=== PATIENT | female | born 2000 ===

== ENCOUNTER 2024-02-14 12:42 | Emergency (ER) | payer OTHER, SELFPAY ==
--- NOTE | ~2024-02-14 | XR_ITS ---
EXAMINATION: XR CHEST CLINICAL INFORMATION: Cough, asthma. COMPARISON: Chest radiograph 11/14/2023. TECHNIQUE: Frontal view of the chest was obtained. FINDINGS: Normal appearance of the cardiomediastinal silhouette. No focal airspace opacities, pleural effusion or pneumothorax. No acute osseous findings. XR/XR chest 1V IMPRESSION: No acute cardiopulmonary findings.
[2024-02-14 13:02] VITALS: BP 120/64; PULSE 70; RESP 18; TEMP 36.1; O2SAT 98; BMI 28.5
--- NOTE | 2024-02-14 13:13 | ED_ITS ---
HPI - General Adult General Chief complaint: Dyspnea Stated complaint: Diff breathing Time Seen by Provider: 02/14/24 15:38 Source: patient Mode of arrival: ambulatory Limitations: no limitations History of Present Illness HPI narrative: 23 yold female with pmh of asthma and covid presents to the ED for coughing, wheezing, and SOB. patient states using her pump multiple times a day. patient states coughing at night and wheezing. patient states no leg swelling, pitting edema, calf pain, pleurisy, recent travel, recent surgery, control or history of PE/DVT. Related Data Previous Rx's ?Medication ?Instructions ?Recorded albuterol sulfate 90 mcg/actuation 2 puff inhalation Q4-6H PRN 02/14/24 aerosol inhaler shortness of breath or wheezing #8.5 grams benzonatate 200 mg capsule 200 mg PO TID PRN cough 5 days #15 02/14/24 caps prednisone 20 mg tablet 40 mg (2 x 20 mg) PO DAILY 5 days 02/14/24 #10 tabs Allergies Allergy/AdvReac Type Severity Reaction Status Date / Time No Known Allergies Allergy Verified 02/14/24 13:11 Review of Systems Review of Systems: coughing and wheezing. Yes all other systems are reviewed and are negative PMFSH Social History Social History Advance Directives: No Advance Directives Information Provided: No Physical Exam ED Vital Signs: Vital Signs - 24 hr 02/14/24 13:02 02/14/24 13:29 02/14/24 16:05 Temperature 97 F 98 F Pulse Rate 70 78 95 Respiratory Rate 18 18 18 Blood Pressure 120/64 135/65 Pulse Oximetry 98 98 Oxygen Delivery Method Room Air Room Air BMI result Body Mass Index 28.5 Const General: cooperative, healthy appearing, comfortable, no acute distress, well developed, alert and awake Orientation/consciousness: oriented to person, oriented to place, oriented to time and patient oriented x3 HENMT Head: Yes normal to inspection, Yes No palpable skull fracture present, Yes normocephalic, Yes atraumatic and No abrasion Eyes General: appearance normal, both eyes and all related structures Neck Neck: Yes normal visual inspection, Yes full ROM, Yes no lymphadenopathy, Yes no meningeal signs, Yes trachea midline, Yes supple, No anterior neck swelling and No tender Chest Chest palpation & inspection: normal inspection of the chest and normal palpation of entire chest wall Resp Effort & Inspection: normal respiratory effort and able to speak in complete sentences Auscultation: wheezes expiratory wheezes and throughout Cardio Jugular venous distension: no JVD Heart sounds: S1 normal heart sound present and S2 normal heart sound present GI Inspection: Yes normal to inspection Palpation (GI): Soft to palpation, not firm, nontender, no guarding and not rigid General: Yes no CVA tenderness Back/Spine/Pelvis Back: no CVA tenderness and No back tenderness Skin General skin exam: no rashes or lesions noted, elasticity normal and turgor normal Neuro General: oriented to person, oriented to place, oriented to time, patient oriented x3, gait normal, tone normal, moves all extremities, Normal light touch and pain sensation, no meningeal signs and no focal motor deficits Extrem Other: BIlateral lower extremity negative for swelling, pitting edema, or calf tendernss. General: Yes normal to inspection, Yes full ROM and Yes capillary refill normal Psych Appearance: grossly normal, well kempt and not disheveled Course Course Course Narrative: RME: 23 yold FEMALE PRESENTS TO THE ED for asthma exacerbation. patient states waking up with wheezing and SOB. past 3 days used up her albueterol pump. negative for leg swelling, calf pain, recent long travel, control use, or surgery. ED bronchodilator, xray, prednisone, and SARS ordered. Lung exam positive for wheezing. Medications Administered Discontinued Medications Generic Name Dose Route Start Last Admin Trade Name Freq PRN Reason Stop Dose Admin Albuterol Sulfate 4 puff 02/14/24 13:16 02/14/24 13:28 Albuterol Sulfate 90 Mcg 8 Gm Inhaler INHALE 02/14/24 13:17 4 puff ONCE ONE Administration Prednisone 60 mg 02/14/24 13:12 02/14/24 15:44 Prednisone 20 Mg Tablet PO 02/14/24 13:13 60 mg ONCE ONE Administration Medical Decision Making Medical Decision Making MDM Narrative: 23-year-old female patient's ED for asthma exacerbation. Wheezing on lung exam. Patient states feeling better. no longer wheezing after treatment albuterol pump from Respiratory. Patient does not want any other further evaluation. Patient would like to be discharged. Patient informed that need to be evaluated by ED provider for decision if any other further workup, but patient states feels fine and wants to be discharged from triage/waiting room. Patient explained worrisome signs including signs of pulmonary embolus, MT, CHF, pneu monia and informed to return to the ED immediately. Differential Diagnosis Differential Diagnoses: The differential diagnosis associated with the presentation includes (asthma, pneumonia, covid, rsv) Admission/Observation Consideration of admission/observation: Escalation of care including admission/observation considered Lab Data MDM Lab Attestation statement: I reviewed the patient's lab results. Labs: Lab Results 02/14/24 Range/Units 13:50 Influenza Type A (PCR) NEGATIVE (Negative) Influenza Type B (PCR) NEGATIVE (Negative) RSV RNA Qual (PCR) NEGATIVE (Negative) SARS-CoV-2 RNA (RT-PCR) NEGATIVE (Negative) Independent Interpretation I performed an independent interpretation of an: Plain X-Ray Radiology Impression Discussion of test interpretation with radiology: I have reviewed the radiologist's reading. Independent Historian Clinical information obtained from an independent historian. History obtained from or confirmed by: Other (patient) External Record Review External record reviewed: Other (prior visits) Prescription Management I considered prescription management with: Other (steroid) Discharge Plan Discharge Clinical Impression: Asthma with exacerbation Patient Disposition: Home, Self-Care Instructions: Asthma (ED) Additional Instructions: Return to the ED immediately for any chest pain, shortness of breath, coughing up blood, leg swelling, calf pain, intractable fever, chills, chest pain inspiration, or any other concerning symptoms. Recommend follow-up with PCP Prescriptions: New prednisone 20 mg tablet 40 mg PO DAILY 5 Days Qty: 10 0RF albuterol sulfate 90 mcg/actuation HFA aerosol inhaler 2 puff inhalation Q4-6H PRN (Reason: shortness of breath or wheezing) Qty: 8 .5 0RF benzonatate 200 mg capsule 200 mg PO TID PRN (Reason: cough) 5 Days Qty: 15 0RF Stand Alone Forms: Work/School Release Interventions: ED Discharge Assessment Last Done: 02/14/24 16:05 Discharge Date/Time: 02/14/24 16:06 Print Language: Bengali
[2024-02-14] MEDS: Albuterol Sulfate 90 MCG 8 GM INHALER 4 PUFF INHALE (13:28)
[2024-02-14 13:29] VITALS: PULSE 78; RESP 18; O2SAT 97
[2024-02-14 14:48] LABS: Influenza A PCR NEGATIVE (Negative); Influenza B PCR NEGATIVE (Negative); Resp Syncy Virus RNA Qual PCR NEGATIVE (Negative); SARS COV2 PCR INHOUSE NEGATIVE (Negative)
[2024-02-14] MEDS: predniSONE 20 MG TABLET 60 MG PO (15:44)
[2024-02-14 16:05] VITALS: BP 135/65; PULSE 95; RESP 18; TEMP 36.6; O2SAT 98
== END 2024-02-14 16:06 | disposition home or self-care (01) ==
PROVIDERS: Physician Assistant; Emergency Provider Student in an Organized Health Care Education/Training Program
DX: J45.901 Unspecified asthma with (acute) exacerbation (principal); R06.02 Shortness of breath; R05.9 Cough, unspecified; Z11.52 Encounter for screening for COVID-19; Z20.822 Contact with and (suspected) exposure to COVID-19
CPT/HCPCS: 0241U; 71045; 94640; 99283; 99284

== ENCOUNTER 2024-03-04 08:34 | Emergency (ER) | payer OTHER, SELFPAY ==
[2024-03-04 08:43] VITALS: BP 107/67; PULSE 70; RESP 16; TEMP 36.6; O2SAT 96; BMI 35.5
--- NOTE | 2024-03-04 10:01 | ED.GENADULT ---
HPI - General Adult General Chief complaint: Dyspnea Stated complaint: asthma attack 4am Time Seen by Provider: 03/04/24 09:24 Source: patient Mode of arrival: ambulatory Limitations: no limitations History of Present Illness HPI narrative: 23 yold female with pmh of asthma presents For coughing, wheezing, and wake up in the middle of the night gasping for air with coughing and wheezing. Patient was seen here on the for same complaint and was prescribed prednisone albuterol inhaler and coughing medication. Patient states she completed those meds and felt better and no longer had coughing and wheezing until last night. Patient will be prescribed those meds again. Patient denies any chest pain, leg swelling, calf pain, coughing up blood, fever, chills, recent long travel, recent surgery, or history of blood clots. Patient not taking any estrogen oral control pills. Patient denies any drug use. Patient denies any recent trauma. Related Data Previous Rx's ?Medication ?Instructions ?Recorded albuterol sulfate 90 mcg/actuation 2 puff inhalation Q4-6H PRN 02/14/24 aerosol inhaler shortness of breath or wheezing #8.5 grams benzonatate 200 mg capsule 200 mg PO TID PRN cough 5 days #15 02/14/24 caps prednisone 20 mg tablet 40 mg (2 x 20 mg) PO DAILY 5 days 02/14/24 #10 tabs albuterol sulfate 90 mcg/actuation 2 puff inhalation Q4-6H PRN 03/04/24 aerosol inhaler shortness of breath or wheezing #8.5 grams benzonatate 200 mg capsule 200 mg PO TID PRN cough 5 days #15 03/04/24 caps prednisone 20 mg tablet 40 mg (2 x 20 mg) PO DAILY 5 days 03/04/24 #10 tabs Allergies Allergy/AdvReac Type Severity Reaction Status Date / Time No Known Allergies Allergy Verified 03/04/24 08:47 Review of Systems Review of Systems: coughing, wheezing, Yes all other systems are reviewed and are negative PMFSH Social History Social History Advance Directives: No Advance Directives Information Provided: No Patient : No Physical Exam ED Vital Signs: Vital Signs - 24 hr 03/04/24 08:43 Temperature 97.9 F Pulse Rate 70 Respiratory Rate 16 Blood Pressure 107/67 Pulse Oximetry 96 Oxygen Delivery Method Room Air BMI result Body Mass Index 35.5 Const General: cooperative, healthy appearing, comfortable, no acute distress, well developed, alert and awake Orientation/consciousness: oriented to person, oriented to place, oriented to time and patient oriented x3 HENMT Head: Yes normal to inspection, Yes No palpable skull fracture present, Yes normocephalic, Yes atraumatic and No abrasion Eyes General: appearance normal, both eyes and all related structures Neck Neck: Yes normal visual inspection, Yes full ROM, Yes no lymphadenopathy, Yes no meningeal signs, Yes trachea midline, Yes supple, No anterior neck swelling and No tender Chest Chest palpation & inspection: normal inspection of the chest and normal palpation of entire chest wall Resp Effort & Inspection: normal respiratory effort and able to speak in complete sentences Auscultation: wheezes expiratory wheezes Cardio Jugular venous distension: no JVD Heart sounds: S1 normal heart sound present and S2 normal heart sound present GI Inspection: Yes normal to inspection Palpation (GI): Soft to palpation, not firm, nontender, no guarding and not rigid General: Yes no CVA tenderness Back/Spine/Pelvis Back: no CVA tenderness and No back tenderness Skin General skin exam: no rashes or lesions noted, elasticity normal and turgor normal Neuro General: oriented to person, oriented to place, oriented to time, patient oriented x3, gait normal, tone normal, moves all extremities, Normal light touch and pain sensation, no meningeal signs, no focal motor deficits, CN's II-XI intact bilaterally and normal sensation to monofilament Extrem Other: bilateral lower extremities negative for swelling, pitting edema, or calf tendrenss. General: Yes normal to inspection and Yes full ROM Psych Appearance: grossly normal, well kempt and not disheveled Medications Administered Discontinued Medications Generic Name Dose Route Start Last Admin Trade Name Freq PRN Reason Stop Dose Admin Albuterol Sulfate 4 puff 03/04/24 10:32 03/04/24 10:38 Albuterol Sulfate 90 Mcg 8 Gm Inhaler INHALE 03/04/24 10:33 4 puff ONCE ONE Administration Medical Decision Making Medical Decision Making [facility] Narrative: 23 yold female presents to the ED ASTHMA excaberation. patient has appointment with pulmonogist. patient requesting same meds that helped her symptoms resolved when she came to the ED. presently no need for any EKG blood work or chest x-ray. Vital signs are stable. Patient denies any chest pain or shortness of breath. Not suspecting PE, myocardial infarction, pneumonia, pneumothorax, hemothorax, pericarditis, myocarditis, or CHF. Lungs positive for wheezing indicating asthma. Patient not in any distress. Patient is not retracting chest or abdomen. Patient is speaking in full sentences. Perc score is 0. Not suspecting CHF. Patient explained worrisome signs and informed to return to the ED if she has them. Differential Diagnosis Differential Diagnoses: The differential diagnosis associated with the presentation includes ( Asthma, ) Admission/Observation Consideration of admission/observation: Escalation of care including admission/observation considered Independent Historian Clinical information obtained from an independent historian. History obtained from or confirmed by: Other ( patient) Prescription Management I considered prescription management with: Other ( steroids, cough medication) Discharge Plan Discharge Clinical Impression: Asthma with exacerbation Patient Disposition: Home, Self-Care Instructions: Asthma (ED) Additional Instructions: return to the ED immediately for any chest pain, shortness of breath coughing up blood, calf pain, weakness, dizziness, chest pain on inspiration, chest pain/shortness of breath on exertion, fever, chills, back pain, rib pain, or any other concerning symptoms. Recommend follow up with PCP and pulmonogist. Prescriptions: New albuterol sulfate 90 mcg/actuation HFA aerosol inhaler 2 puff inhalation Q4-6H PRN (Reason: shortness of breath or wheezing) Qty: 8.5 0RF prednisone 20 mg tablet 40 mg PO DAILY 5 Days Qty: 10 0RF benzonatate 200 mg capsule 200 mg PO TID PRN (Reason: cough) 5 Days Qty: 15 0RF No Action prednisone 20 mg tablet 40 mg PO DAILY 5 Days Qty: 10 0RF albuterol sulfate 90 mcg/actuation HFA aerosol inhaler 2 puff inhalation Q4-6H PRN (Reason: shortness of breath or wheezing) Qty: 8.5 0RF benzonatate 200 mg capsule 200 mg PO TID PRN (Reason: cough) 5 Days Qty: 15 0RF Stand Alone Forms: Work/School Release Interventions: ED Discharge Assessment Last Done: 03/04/24 10:40 Discharge Date/Time: 03/04/24 10:41 Print Language: Mauritanian
[2024-03-04 10:37] VITALS: BP 110/52; PULSE 65; RESP 18; O2SAT 95
[2024-03-04] MEDS: Albuterol Sulfate 90 MCG 8 GM INHALER 4 PUFF INHALE (10:38)
[2024-03-04 10:40] VITALS: BP 110/52; PULSE 65; RESP 18; TEMP 36.6; O2SAT 95
== END 2024-03-04 10:41 | disposition home or self-care (01) ==
PROVIDERS: Emergency Provider Student in an Organized Health Care Education/Training Program
DX: J45.901 Unspecified asthma with (acute) exacerbation (principal); Z79.899 Other long term (current) drug therapy
CPT/HCPCS: 99284

== ENCOUNTER 2024-03-24 09:59 | Emergency (ER) | payer OTHER, SELFPAY ==
[2024-03-24 10:42] VITALS: BP 103/55; PULSE 74; RESP 16; O2SAT 98; BMI 34.9
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
== END 2024-03-24 11:22 | disposition home or self-care (01) ==
PROVIDERS: Emergency Provider Emergency Medicine
DX: S13.4XXA Sprain of ligaments of cervical spine, initial encounter (principal); V89.0XXA Person injured in unspecified motor-vehicle accident, nontraffic, initial encounter; Y93.9 Activity, unspecified; Y92.488 Other paved roadways as the place of occurrence of the external cause; Y99.9 Unspecified external cause status
CPT/HCPCS: 99281; 99282

== ENCOUNTER 2024-12-17 06:21 | Emergency (ER) | payer SELFPAY ==
--- NOTE | ~2024-12-17 | XR_ITS ---
CLINICAL HISTORY: SOB 2 view chest x-ray Comparison: CR/AK/SR - XR CHEST 1V - 02/14/24 13:51 EDT Findings: No consolidation or effusion. Heart size is normal. No acute fracture. IMPRESSION: 1. No acute cardiopulmonary abnormality. This document has been electronically signed by: Cesar Myers on 12/17/2024 07:28:26
[2024-12-17 06:33] VITALS: BP 134/59; PULSE 125; RESP 22; TEMP 37.2; O2SAT 96; BMI 31.2
[2024-12-17 06:43] LABS: MANUAL DIFF FLAG NO
[2024-12-17] MEDS: Albuterol/Iprat 2.5/0.5MG 3 ML AMPUL.NEB INHALE (06:43)
[2024-12-17 06:44] VITALS: PULSE 113; RESP 21; O2SAT 95
[2024-12-17 06:44] LABS: Basophils Percent Auto 0.2 % (0-2); Eosinophils Percent Auto 0.4 % (0-4); Hematocrit 38.4 % (37.0-47.0); Imm Gran Abs Auto 0.01 X10*3/uL (0.00-0.03); Imm Gran Pct Auto 0.2 % (0.0-0.4); Lymphocytes Absolute Auto 0.3 X10*3/uL (1.2-4.9); Lymphocytes Percent Auto 5.8 % (20-40); Mean Corpuscular HGB Conc 36.5 g/dl (31.0-35.0); Mean Corpuscular Hemoglobin 31.1 pg (27.0-33.0); Mean Corpuscular Volume 85.3 fL (80.0-98.0); Mean Platelet Volume 9.8 fL (9.4-12.3); Monocytes Absolute Auto 0.4 X10*3/uL (0.1-1.2); Monocytes Percent Auto 6.2 % (2-11); Neutrophils Percent Auto 87.2 % (45-73); Platelet Count 188 X10*3/uL (160-400); Red Cell Distribution Width 12.6 % (11.0-16.0); White Blood Count 5.7 X10*3/uL (4.8-10.8)
--- NOTE | 2024-12-17 06:46 | ED_ITS ---
HPI - Asthma General Chief Complaint: Asthma Stated Complaint: asthma attack Time Seen by Provider: 12/17/24 06:46 Source: patient Mode of arrival: ambulatory Limitations: no limitations History of Present Illness ED Provider: TOBY Tristan HPI Narrative: This is a 24-year-old female who presents to the emergency department with feeling unwell overall reporting cough, shortness of breath, fatigue, malaise, myalgias all this came on suddenly yesterday. She thinks this maybe asthma. She reports she has been using her inhaler more than she is supposed to because of wheezing. She states it has not been helping much. Denies sick contacts. She denies chest pain, nausea, vomiting, abdominal pain, headache, vision changes, dizziness, weakness. Related Data Previous Rx's ?Medication ?Instructions ?Recorded albuterol sulfate 90 mcg/actuation 2 puff inhalation Q4-6H PRN 02/14/24 aerosol inhaler shortness of breath or wheezing #8.5 grams benzonatate 200 mg capsule 200 mg PO TID PRN cough 5 days #15 02/14/24 caps prednisone 20 mg tablet 40 mg (2 x 20 mg) PO DAILY 5 days 02/14/24 #10 tabs albuterol sulfate 90 mcg/actuation 2 puff inhalation Q4-6H PRN 03/04/24 aerosol inhaler shortness of breath or wheezing #8.5 grams benzonatate 200 mg capsule 200 mg PO TID PRN cough 5 days #15 03/04/24 caps prednisone 20 mg tablet 40 mg (2 x 20 mg) PO DAILY 5 days 03/04/24 #10 tabs albuterol sulfate 90 mcg/actuation 2 inh inhalation Q4-6H PRN 12/17/24 breath activated powder inhaler shortness of breath or wheezing #1 ea benzonatate 100 mg capsule 100 mg PO BID PRN cough #20 caps 12/17/24 oseltamivir 75 mg capsule (Tamiflu) 75 mg PO BID 5 days #10 caps 12/17/24 prednisone 20 mg tablet 40 mg (2 x 20 mg) PO DAILY 5 days 12/17/24 #10 tabs Allergies Allergy/AdvReac Type Severity Reaction Status Date / Time No Known Allergies Allergy Verified 12/17/24 06:34 Review of Systems 2 Review of Systems: Yes all other systems are reviewed and are negative PMFSH Past Medical History Attestation statement: The following information was validated with the patient. Source: old records reviewed and nursing notes reviewed Medical History Asthma Social History Social History Smoked in Last 30 Days: No Use of substances other than those prescribed or required for medical reasons: No Advance Directives: No Advance Directives Information Provided: No Do you have a plan to hurt others: No Plan Physical Exam 2 Vital Signs: Vital Signs: Last Vital Signs Temp 99.0 F 12/17/24 07:18 Pulse 122 H 12/17/24 07:18 Resp 22 H 12/17/24 07:18 BP 103/59 L 12/17/24 07:18 Pulse Ox 96 12/17/24 07:18 O2 Del Method Room Air 12/17/24 07:18 BMI result Body Mass Index 31.2 vss Appearance: Alert.? Oriented X3.? No acute distress.? Head: Normocephalic, atraumatic, no step-offs or deformities Eyes: Pupils equal, round and reactive to light.? CVS: Normal heart rate and rhythm.? Pulses normal.? Respiratory: No respiratory distress.? Breath sounds normal.? Abdomen: Soft and nontender.? Skin: Skin warm and dry.? Normal skin color.? Normal skin turgor.? Extremities: No lower extremity edema.? No calf ttp. 5/5 strength to bilateral upper and lower extremities Back: No midline tenderness, no C-spine tenderness, full range of motion, no CVA tenderness bilaterally Neuro: Oriented X 3.? No motor deficit.? No sensory deficit. CN 2-12 intact Course Reevaluation(s) Reevaluation #1: Patient's CBC unremarkable. Chemistry with no acute findings needing intervention. Patient's viral testing significant for influenza A. Will send Tamiflu as symptoms started yesterday. Chest x-ray no acute cardiopulmonary abnormalities. At this time patient is stable for discharge. Will discharge her with Tamiflu, prednisone, inhaler, benzonatate. Educated patient on diagnosis and treatment plan, answered all question, patient verbalizes understanding. At this time patient will be discharged home, advised to return with new or worsening symptoms. Educated on worrisome signs and symptoms and when to return. At this time I feel comfortable discharge home. Time: 07:58 Medications Administered Discontinued Medications Generic Name Dose Route Start Last Admin Trade Name Jorge Alberto PRN Reason Stop Dose Admin Albuterol/Ipratropium 3 ml 12/17/24 06:37 12/17/24 06:43 Albuterol/Iprat 2.5/0.5mg 3 Ml Ampul.Neb INHALE 12/17/24 06:38 3 ml ONCE ONE Administration Medical Decision Making Medical Decision Making [facility] Narrative: 24-year-old female presents with viral symptoms since yesterday. Physical exam benign History and physical exam concerning for flu versus COVID versus RSV. Unlikely pulmonary embolism patient is likely tachycardic secondary to multiple inhalers at home. I do not suspect ACS, PE, dissection, acute respiratory distress. Plan labs, imaging, viral testing as ordered by nursing Differential Diagnosis Differential Diagnoses: The differential diagnosis associated with the presentation includes (History and physical exam concerning for flu versus COVID versus RSV. Unlikely pulmonary embolism patient is likely tachycardic secondary to multiple inhalers at home. I do not suspect ACS, PE, dissection, acute respiratory distress.) Admission/Observation Consideration of admission/observation: Escalation of care including admission/observation considered Lab Data [facility] Lab Attestation statement: I reviewed the patient's lab results. 12/17/24 06:38 12/17/24 06:38 Labs: Lab Results 12/17/24 12/17/24 Range/Units 06:35 06:38 WBC 5.7 (4.8-10.8) X10*3/uL RBC 4.50 (4.20-5.50) X10*6/uL Hgb 14.0 (12.0-16.0) g/dl Hct 38.4 (37.0-47.0) % MCV 85.3 (80.0-98.0) fL MCH 31.1 (27.0-33.0) pg MCHC 36.5 H (31.0-35.0) g/dl RDW 12.6 (11.0-16.0) % Plt Count 188 (160-400) X10*3/uL MPV 9.8 (9.4-12.3) fL Immature Gran % (Auto) 0.2 (0.0-0.4) % Neut % (Auto) 87.2 H (45-73) % Lymph % (Auto) 5.8 L (20-40) % Maries % (Auto) 6.2 (2-11) % Eos % (Auto) 0.4 (0-4) % Baso % (Auto) 0.2 (0-2) % Lymph # (Auto) 0.3 L (1.2-4.9) X10*3/uL Maries # (Auto) 0.4 (0.1-1.2) X10*3/uL Eos # (Auto) 0.0 (0.0-0.4) X10*3/uL Baso # (Auto) 0.0 (0.0-0.2) X10*3/uL Abs Immat Gran (auto) 0.01 (0.00-0.03) X10*3/uL Absolute Neuts (auto) 5.0 (2.0-8.3) x10*3/uL Absolute Nucleated RBC 0.000 (0.0-0.012) X10*3/uL Nucleated RBC % (auto) 0.0 (0.0-0.2) /100WBC Sodium 136 (135-145) mmol/L Potassium 3.4 (3.3-5.1) mmol/L Chloride 105 (96-108) mmol/L Carbon Dioxide 20 L (22-29) mmol/L Anion Gap 14 (12-20) BUN 9 (9-16) mg/dL Creatinine 0.67 (0.5-1.4) mg/dL Estim Creat Clear Calc 113.1 Estimated GFR > 60 Random Glucose 116 H (60-115) mg/dL Calcium 8.8 (8.4-10.2) mg/dL Total Bilirubin 0.5 (0.0-1.0) mg/dL AST 35 H (5-31) U/L ALT 20 (0-31) U/L Alkaline Phosphatase 62 (39-117) U/L Total Protein 7.8 (6.5-8.0) g/dL Albumin 4.2 (3.5-5.0) g/dL Influenza Type A (PCR) POSITIVE A (Negative) Influenza Type B (PCR) NEGATIVE (Negative) RSV RNA Qual (PCR) NEGATIVE (Negative) SARS-CoV-2 RNA (RT-PCR) NEGATIVE (Negative) Independent Interpretation I performed an independent interpretation of an: Plain X-Ray (Findings: No consolidation or effusion. Heart size is normal. No acute fracture. IMPRESSION: 1. No acute cardiopulmonary abnormality.) Radiology Impression Discussion of test interpretation with radiology: I have reviewed the radiologist's reading. Independent Historian Clinical information obtained from an independent historian. History obtained from or confirmed by: Other (significant other ) External Record Review External record reviewed: Inpatient record, Office record, Outpatient record, Prior outpatient labs, Prior outpatient radiology, Primary care record and Outside ED record Prescription Management I considered prescription management with: Antiviral (tamiflu ) Chronic Conditions Patient?s care impacted by: Other (denies ) Discharge Plan Discharge Clinical Impression: Influenza A Patient Disposition: Home, Self-Care Instructions: Influenza (DC), Flu Shot (Vaccine) for Adults (ED), Droplet Precautions (ED) Additional Instructions: Take your medications as prescribed. If you were prescribed antibiotics today, it is important that you take your medication to their entirety, do not skip any doses, do not finish them early. Follow-up with your primary care provider this week. Return to the emergency department with new or worsening symptoms. Such as fevers, chills, chest pain, shortness of breath, nausea, vomiting, dizziness, headache, vision changes, lethargy In case of emergency call 911 Prescriptions: New oseltamivir [Tamiflu] 75 mg capsule 75 mg PO BID 5 Days Qty: 10 0RF benzonatate 100 mg capsule 100 mg PO BID PRN (Reason: cough) Qty: 20 0RF prednisone 20 mg tablet 40 mg PO DAILY 5 Days Qty: 10 0RF albuterol sulfate 90 mcg/actuation aerosol powdr breath activated 2 inh inhalation Q4-6H PRN (Reason: shortness of breath or wheezing) Qty: 1 0RF No Action albuterol sulfate 90 mcg/actuation HFA aerosol inhaler 2 puff inhalation Q4-6H PRN (Reason: shortness of breath or wheezing) Qty: 8.5 0RF prednisone 20 mg tablet 40 mg PO DAILY 5 Days Qty: 10 0RF benzonatate 200 mg capsule 200 mg PO TID PRN (Reason: cough) 5 Days Qty: 15 0RF prednisone 20 mg tablet 40 mg PO DAILY 5 Days Qty: 10 0RF albuterol sulfate 90 mcg/actuation HFA aerosol inhaler 2 puff inhalation Q4-6H PRN (Reason: shortness of breath or wheezing) Qty: 8.5 0RF benzonatate 200 mg capsule 200 mg PO TID PRN (Reason: cough) 5 Days Qty: 15 0RF Referrals: Physician,None [Primary Care Provider] - 2 days Print Language: Pakistani
[2024-12-17 06:57] LABS: Alanine Aminotransferase 20 U/L (0-31); Albumin Level 4.2 g/dL (3.5-5.0); Alkaline Phosphatase 62 U/L (39-117); Anion Gap 14 (12-20); Aspartate Amino Transferase 35 U/L (5-31); Bilirubin Total 0.5 mg/dL (0.0-1.0); Blood Urea Nitrogen 9 mg/dL (9-16); Calcium 8.8 mg/dL (8.4-10.2); Carbon Dioxide 20 mmol/L (22-29); Chloride 105 mmol/L (96-108); Creatinine Clr Calc Pharmacy 113.1; Estimated Glomerular Filt Rate > 60; Glucose Random 116 mg/dL (60-115); Potassium 3.4 mmol/L (3.3-5.1); Sodium 136 mmol/L (135-145); Total Protein 7.8 g/dL (6.5-8.0)
[2024-12-17 07:18] VITALS: BP 103/59; PULSE 122; RESP 22; TEMP 37.2; O2SAT 96
[2024-12-17 07:20] LABS: Influenza A PCR POSITIVE (Negative); Influenza B PCR NEGATIVE (Negative); Resp Syncy Virus RNA Qual PCR NEGATIVE (Negative); SARS COV2 PCR INHOUSE NEGATIVE (Negative)
[2024-12-17] MEDS: Acetaminophen 325 MG TABLET 650 MG PO (08:07)
[2024-12-17] MEDS: dexAMETHasone sod phosphate 10 MG/ML VIAL IVPUSH (08:08)
[2024-12-17 08:18] VITALS: PULSE 122; RESP 20; O2SAT 95
[2024-12-17] MEDS: levalbuterol HCL 1.25 MG/3 ML VIAL.NEB 5 MG INHALE (08:18)
[2024-12-17 08:45] VITALS: BP 126/61; PULSE 117; RESP 22; TEMP 38.4; O2SAT 98
== END 2024-12-17 08:46 | disposition home or self-care (01) ==
PROVIDERS: Emergency Provider Emergency Medicine
DX: J10.1 Influenza due to other identified influenza virus with other respiratory manifestations (principal); R06.02 Shortness of breath; J45.909 Unspecified asthma, uncomplicated; Z03.818 Encounter for observation for suspected exposure to other biological agents ruled out
CPT/HCPCS: 0241U; 71046; 80053; 85025; 94640; 96374; 99284; J1100

== ENCOUNTER → 2024-12-17 06:30 | Outpatient (BNV) | payer SELFPAY | PROVIDERS: Emergency Provider Emergency Medicine; Visit Provider Radiology Vascular & Interventional Radiology | DX: R06.02 Shortness of breath (principal) | CPT/HCPCS: 71046 ==